=== PATIENT | male | born 1990 | race Two or more races ===

== ENCOUNTER 2018-01-16 01:28 | Emergency (ER) | payer SELFPAY ==
[~2018-01-16] VITALS: Ht 172.7 cm; Wt 86.2 kg
[2018-01-16] MEDS ORDERED: SULFAMETH/TRIMETH 800/160 MG TABLET ONE (02:13)
[2018-01-16] MEDS ORDERED: SULFAMETH/TRIMETH 800/160 MG TABLET PO ONE (02:15)
--- NOTE | 2018-01-16 02:15 | NUR ---
DRESSED I/D SITE ORDERED
--- NOTE | 2018-01-16 02:18 | NUR ---
Patient discharged to home in stable conditon. Written and verbal after care instructions given. Patient verbalizes understanding of instructions. WALKED OUT OF ER WITH NO DISTRESS NOTED
[2018-01-16 02:19] VITALS: BP 148/79
== END 2018-01-16 02:19 | disposition home or self-care (01) ==
LOC: ER 01:36
DX: L02.414 Cutaneous abscess of left upper limb (principal); F11.10 Opioid abuse, uncomplicated; Z71.6 Tobacco abuse counseling; F17.200 Nicotine dependence, unspecified, uncomplicated
CPT/HCPCS: 10060; 99283; 99406; J3490 ×2; A4663

== ENCOUNTER 2018-01-18 09:50 | Emergency (ER) | payer SELFPAY ==
[~2018-01-18] VITALS: Ht 172.7 cm; Wt 86.2 kg
--- NOTE | 2018-01-18 10:38 | NUR ---
Patient discharged to home in stable conditon. Written and verbal after care instructions given. Patient verbalizes understanding of instructions.pt walks in steady gait.
== END 2018-01-18 10:39 | disposition home or self-care (01) ==
LOC: ER 09:50
DX: L02.414 Cutaneous abscess of left upper limb (principal); F17.200 Nicotine dependence, unspecified, uncomplicated
CPT/HCPCS: A4663

== ENCOUNTER 2020-10-24 21:54 | Emergency (ER) | payer OTHER ==
[~2020-10-24] VITALS: Ht 172.7 cm; Wt 93.0 kg
[2020-10-24] MEDS ORDERED: OXYCODONE/APAP 5-325 MG TABLET PO ONE (22:45)
[2020-10-24] MEDS ORDERED: CLINDAMYCIN HCL 150 MG CAPSULE PO ONE (22:45)
[2020-10-24] MEDS ORDERED: OXYC-128 PO (22:46)
[2020-10-24] MEDS ORDERED: CLIN300C12 PO (22:46)
[2020-10-24] MEDS ORDERED: OXYCODONE/APAP 5-325 MG TABLET ONE (22:58)
[2020-10-24] MEDS ORDERED: CLINDAMYCIN HCL 150 MG CAPSULE ONE ×2 (22:58)
[2020-10-24 23:04] VITALS: BP 130/74
--- NOTE | 2020-10-24 23:04 | NUR ---
Patient discharged to home in stable condition. Written and verbal after care instructions given. Patient verbalizes understanding of instructions. Stressed follow up or return to ER for worsening s/s.
== END 2020-10-24 23:05 | disposition home or self-care (01) ==
LOC: ER 21:58
DX: M27.2 Inflammatory conditions of jaws (principal); K02.9 Dental caries, unspecified
CPT/HCPCS: A4663